=== PATIENT | male | born 1990 | race Caucasian/White ===

== ENCOUNTER 2025-09-06 17:24 | Emergency (ER) | payer OTHER ==
[~2025-09-06] VITALS: Ht 177.8 cm; Wt 123.0 kg
[2025-09-06 17:35] VITALS: BP 119/84; PULSE 62; RESP 18; TEMP 97.9; O2SAT 99
[2025-09-06] MEDS: ACETAMINOPHEN 500 MG TABLET PO ONE (18:36)
[2025-09-06] MEDS: KETOROLAC TROMETHAMINE 60 MG/2 ML VIAL IM ONE (18:36)
[2025-09-06 19:17] LABS: PLATELET COUNT (AUTO) 168 K/uL (150-450); RED BLOOD CELL COUNT(AUTO) 5.22 MIL/uL (4.50-5.90); RED CELL DISTRIBUTION WIDTH 13.9 % (11.5-14.5); WHITE BLOOD COUNT (AUTO) 7.1 K/uL (4.5-11.0)
[2025-09-06 19:24] LABS: SODIUM SERUM 137 mmol/L (136-145)
[2025-09-06 19:29] LABS: GLUCOSE,RANDOM 94 mg/dL (70-110)
[2025-09-06 19:32] LABS: TROPONIN I-HIGH SENSITIVITY 4 ng/L (<76)
[2025-09-06 19:36] LABS: CALCIUM, TOTAL 8.9 mg/dL (8.8-10.5); CREATININE 0.86 mg/dL (0.60-1.30); GLOMERULAR FILTR. RATE CALC > 60 mL/min (>60); UREA NITROGEN, BLOOD 13 mg/dL (7-18)
[2025-09-06] MEDS ORDERED: ACET-66 PO (19:44)
[2025-09-06] MEDS ORDERED: IBUP-1554 PO (19:44)
[2025-09-06] MEDS ORDERED: METH-659 PO (19:44)
== END 2025-09-06 20:02 | disposition home or self-care (01) ==
LOC: EMS 17:24
DX: M54.6 Pain in thoracic spine (principal); E66.9 Obesity, unspecified; I10 Essential (primary) hypertension; Z68.30 Body mass index [BMI] 30.0-30.9, adult; Z79.899 Other long term (current) drug therapy
CPT/HCPCS: 99285; 71045; 80048; 84484; 85025; 36415; 72070; 93005; 96372; J1885